=== PATIENT | male | born 1970 | race African-American/Black ===

== ENCOUNTER 2018-09-06 00:50 | Emergency (ER) | payer SELFPAY ==
[~2018-09-06] VITALS: Ht 182.9 cm; Wt 88.0 kg
[2018-09-06] MEDS ORDERED: LIDOCAINE HCL/PF 1% 10 MG/ML 5ML VIAL IJ NR (05:15)
[2018-09-06] MEDS ORDERED: LIDOCAINE HCL 1% 20ML VIAL (Pyxis) INJ INFIL ONE (05:15)
[2018-09-06] MEDS ORDERED: TETANUS, DIPHTHERIA, PERTUSSIS VAC/PF 0.5ML (>7YR OLD) IM ONE (05:45)
[2018-09-06] MEDS ORDERED: CEFAZOLIN 1000MG PREMIX 50 ML IV ONE (05:45)
[2018-09-06] MEDS ORDERED: HYDROCODONE/APAP 7.5/325MG 1 TAB TABLET PO PRN (06:30)
[2018-09-06 07:14] VITALS: BP 141/82
== END 2018-09-06 07:17 | disposition left against medical advice (07) ==
LOC: ER 00:50
DX: S93.135A Subluxation of interphalangeal joint of left lesser toe(s), initial encounter (principal); F12.10 Cannabis abuse, uncomplicated; W22.8XXA Striking against or struck by other objects, initial encounter; Y93.89 Activity, other specified; Y92.89 Other specified places as the place of occurrence of the external cause; Y99.8 Other external cause status
CPT/HCPCS: 28660; 73630; 90471; 90715; 96374; 99284; J0690; J3490; Z7610